=== PATIENT | male | born 1945 | race Caucasian/White ===

== ENCOUNTER → 2017-08-16 | Outpatient (CLI) | payer MEDICARE, BC ==
[~2017-08-16] MED LIST: IOHEXOL 300MG/ML 150 ML BTL; SOD CHLORIDE 0.9% 100 ML
== END | disposition home or self-care (01) ==
LOC: NUC 09:19
DX: L02.415 Cutaneous abscess of right lower limb (principal); L02.211 Cutaneous abscess of abdominal wall
CPT/HCPCS: 73200; 74177; 78315; A9503